=== PATIENT | female | born 1930 | race Caucasian/White ===

== ENCOUNTER 2016-02-06 13:27 | Inpatient (IN) | payer OTHER ==
--- NOTE | 2016-02-06 13:56 | EDPHY ---
H & P Stated Complaint: ALTERED LOC OVER PAST 24 HRS AT [facility], RECENT F[place]S Time Seen by Provider: 02/06/16 13:29 HPI/ROS: CHIEF COMPLAINT: Altered mental status HISTORY OF PRESENT ILLNESS: The patient is brought to the emergency department for evaluation of altered mental status. She has a fairly complicated past medical history including gait instability, dementia, paroxysmal atrial fibrillation on Coumadin with recent admission to the hospital following a mechanical fall. The patient was admitted to the hospital from January 23. She was noted to go in and out of atrial fibrillation and converted to a sinus rhythm spontaneously. She had a head CT scan which demonstrated no evidence of intracranial hemorrhage. She was not observed to have evidence of an infection and was ultimately discharged back to [facility]. By report, the patient has had some falls back at [facility]. She still has lacerations in her head that were supposed to be removed on the 31 of January. The patient is oriented complains of generalized weakness. She denies specific pain. She has no complaints of fever, vomiting or cough. She has chronic dyspnea and edema by her report. REVIEW OF SYSTEMS: A comprehensive 10 point review of systems is otherwise negative aside from elements mentioned in the history of present illness. Source: Patient Exam Limitations: No limitations - Personal History Current Tetanus/Diphtheria Vaccine: Unsure Current Tetanus Diphtheria and Acellular Pertussis (TDAP): Unsure Tetanus Vaccine Date: <10 YRS - Medical/Surgical History Hx Asthma: No Hx Chronic Respiratory Disease: No Hx Diabetes: No Hx Cardiac Disease: No Hx Renal Disease: No Hx Cirrhosis: No Hx Alcoholism: No Hx HIV/AIDS: No Hx Splenectomy or Spleen Trauma: No Other PMH: OSTEOARTHRITIS,FIBROMYLAGIA,CHRONIC KIDNEY DX, PE, DEMENTIA, - Social History Smoking Status: Never smoked - Physical Exam Exam: General Appearance: Obese female, deconditioned Eyes: Pupils equal and round no pallor or injection ENT, Mouth: Dry mucous membranes Respiratory: Mild tachypnea, rales bilaterally Cardiovascular: Tachycardic, irregular Gastrointestinal: Obese, no focal tenderness Neurological: Alert and oriented times name and place, moves all 4 extremities with 5/5 strength, somnolent but cooperative and arousable Skin: Chronic stasis dermatitis Musculoskeletal: No gross deformities or tenderness to palpation on active/ passive range of motion Extremities: 3+ bilateral pitting edema Constitutional: Initial Vital Signs Temperature (C) 36.5 C 02/06/16 13:30 Heart Rate 139 H 02/06/16 13:30 Respiratory Rate 20 02/06/16 13:30 Blood Pressure 80/58 L 02/06/16 13:30 O2 Sat (%) 93 02/06/16 13:30 O2 Delivery Mode Nasal Cannula O2 (L/minute) 4 Allergies/Adverse Reactions: ibuprofen [Ibuprofen] Allergy (Unknown, Verified 09/18/15 10:18) garlic Allergy (Verified 12/08/15 10:54) Home Medications: Medication Instructions Recorded Pregabalin [Lyrica 50mg (*)] 100 mg PO HS 11/27/12 Levothyroxine [Synthroid 75 mcg 75 mcg PO DAILY06 01/06/14 (*)] DULoxetine [Cymbalta 60 MG (*)] 60 mg PO DAILY 09/18/15 Warfarin Sodium [Coumadin 3MG (*)] 3 mg PO TUTHSA@16 09/18/15 Warfarin Sodium [Coumadin 3MG (*)] 6 mg PO SUMOWEFR@16 09/18/15 Lidocaine 5% [Lidoderm 5% Patch 1 ea TD DAILY #0 patch 09/21/15 (*)] Acetaminophen [Tylenol ES 500 mg 1,000 mg PO BID PRN 01/25/16 (*)] Medical Decision Making - Diagnostics EKG Interpretation: EKG: Complete interpretation has been separately recorded in the [facility] archive. Summary impression: Atrial fibrillation with rapid ventricular response, nonspecific ST T wave changes noted Imaging: CT head without contrast: Negative for intracranial hemorrhage or skull fracture Chest x-ray AP: Cardiomegaly and acute congestive heart failure ED Course/Re-evaluation: The patient presents to the ED with altered mental status and history of multiple falls. I reviewed her extensive past medical records including her recent hospitalization. The patient was taken for a stat CT scan of her head given her history of falls, anticoagulant use and altered mental status. This demonstrates no evidence of intracranial hemorrhage. The patient is in atrial fibrillation with rapid ventricular response. Patient had her sutures removed by the medical office technologist. She has no evidence of new trauma. The patient's chest x-ray demonstrates heart failure. Her laboratory studies are unremarkable. The patient is quite weak and deconditioned. She is unable to sit up on her own. She presents to the ED with altered mental status which is undoubtedly multifactorial. Certainly atrial fibrillation a relative hypoxemia could be contributing to her symptoms. I do feel she requires admission to the hospital for further evaluation and management. 3:15 p.m.: Consultation is made with Dr. Maxi Youssef who will admit the patient. Patient is re-examined and she is resting comfortably in the room. Heart rate is now 125, persistent atrial fibrillation. Blood pressure is 134/ 90. Differential Diagnosis: Differential diagnosis considered includes intracranial hemorrhage, skull fracture, pneumonia, congestive heart failure, arrhythmia, urinary tract infection, metabolic abnormality - Data Points Laboratory Results: Laboratory Results 02/06/16 13:50 02/06/16 13:50 02/06/16 13:50 WBC 12.07 H 10^3/uL (3.80-9.50) RBC 4.52 10^6/uL (4.18-5.33) Hgb 13.7 g/dL (12.6-16.3) Hct 41.0 % (38.0-47.0) MCV 90.7 fL (81.5-99.8) MCH 30.3 pg (27.9-34.1) MCHC 33.4 g/dL (32.4-36.7) RDW 15.0 % (11.5-15.2) Plt Count 242 10^3/uL (150-400) MPV 11.6 fL (8.7-11.7) Neut % (Auto) 85.5 H % (39.3-74.2) Lymph % (Auto) 9.0 L % (15.0-45.0) Republic % (Auto) 4.4 L % (4.5-13.0) Eos % (Auto) 0.1 L % (0.6-7.6) Baso % (Auto) 0.3 % (0.3-1.7) Nucleat RBC Rel Count 0.0 % (0.0-0.2) Absolute Neuts (auto) 10.32 H 10^3/uL (1.70-6.50) Absolute Lymphs (auto) 1.09 10^3/uL (1.00-3.00) Absolute Monos (auto) 0.53 10^3/uL (0.30-0.80) Absolute Eos (auto) 0.01 L 10^3/uL (0.03-0.40) Absolute Basos (auto) 0.04 10^3/uL (0.02-0.10) Absolute Nucleated RBC 0.00 10^3/uL (0-0.01) Immature Gran % 0.7 % (0.0-1.1) Immature Gran # 0.08 10^3/uL (0.00-0.10) PT 20.5 H SEC (12.0-15.0) INR 1.75 H (0.83-1.16) APTT 28.6 SEC (23.0-38.0) Sodium 132 L mEq/L (134-144) Potassium 4.9 mEq/L (3.5-5.2) Chloride 93 L mEq/L (97-110) Carbon Dioxide 24 mEq/l (22-31) Anion Gap 15 mEq/L (8-16) BUN 38 H mg/dL (7-23) Creatinine 1.4 H mg/dL (0.6-1.0) Estimated GFR 36 Glucose 102 H mg/dL (70-100) Calcium 9.1 mg/dL (8.5-10.4) Departure - Departure Disposition: [facility] Inpatient Acute Clinical Impression: Confusion, Rapid atrial fibrillation Condition: Fair
[2016-02-06 14:03] LABS: % IMMATURE GRANULYOCYTES 0.7 % (0.0-1.1); ABSOLUTE IMMATURE GRANULOCYTES 0.08 10^3/uL (0.00-0.10); ADD DIFF? NO; ADD MORPH? NO; ADD SCAN? NO; ATYPICAL LYMPHOCYTE FLAG 20 (0-99); FRAGMENT RBC FLAG 0 (0-99); HEMOGLOBIN 13.7 g/dL (12.6-16.3); LEFT SHIFT FLG 0 (0-99); LIPEMIA HEMOLYSIS FLAG 80 (0-99); MEAN CELL HEMOGLOBIN 30.3 pg (27.9-34.1); MEAN CELL HEMOGLOBIN CONCENTR. 33.4 g/dL (32.4-36.7); MEAN CELL VOLUME 90.7 fL (81.5-99.8); MEAN PLATELET VOLUME 11.6 fL (8.7-11.7); PLATELET CLUMPS FLAG 0 (0-99); PLATELET COUNT 242 10^3/uL (150-400); RED BLOOD CELL COUNT 4.52 10^6/uL (4.18-5.33)
--- NOTE | 2016-02-06 14:24 | CPEKG ---
Heart Rate: 152 RR Interval: 395 QRSD Interval: 82 QT Interval: 304 QTC Interval: 484 QRS [place]: -1 T Wave [place]: 96 EKG Severity - ABNORMAL ECG - EKG Impression: ATRIAL FIBRILLATION WITH RAPID V-RATE EKG Impression: REPOLARIZATION ABNORMALITY, PROB RATE RELATED Electronically Signed By: Larry Rousseau 06-Feb-2016 16:17:50
--- NOTE | 2016-02-06 14:29 | DX ---
Portable AP chest. February 06, 2016 at 13:59 History: Cough. Dyspnea. Comparison Study: January 24, 2016. Findings: Increasing pulmonary vascular prominence is identified when compared to prior study suggest ing progressive congestive heart failure, associated with small right pleural effusion and increase i n cardiac silhouette size. Impression: Congestive heart failure, new.
[2016-02-06 14:30] LABS: APTT 28.6 SEC (23.0-38.0); INR 1.75 (0.83-1.16); PROTIME(PATIENT) 20.5 SEC (12.0-15.0)
[2016-02-06] MEDS ORDERED: NS 500 ML IV SCH (14:30)
[2016-02-06 14:32] LABS: ANION GAP 15 mEq/L (8-16); CALCIUM 9.1 mg/dL (8.5-10.4); CARBON DIOXIDE 24 mEq/l (22-31); CHLORIDE 93 mEq/L (97-110); CREATININE 1.4 mg/dL (0.6-1.0); GLOMERULAR FILTRATION RATE 36; GLUCOSE 102 mg/dL (70-100); POTASSIUM 4.9 mEq/L (3.5-5.2); SODIUM 132 mEq/L (134-144)
--- NOTE | 2016-02-06 14:38 | CT ---
CT Head Without Contrast History: Trauma. Head injury. Altered mental status. Comparison: January 24, 2016. Technique: Helical CT images were acquired from foramen magnum through vertex, without intravenous c ontrast. Soft tissue and bone windows were reviewed on the computer workstation. Dose reduction tech niques were utilized. Findings: Soft tissue swelling is seen in the left frontal scalp. No evidence for skull fracture. No evidence for intracranial hemorrhage, acute infarct, or mass. There is periventricular and deep hemis pheric white matter change bilaterally which is stable in appearance. Calcifications are seen in the white matter bilaterally which are stable in appearance. There is generalized prominence of the ventr icles, sulci, and cisterns. No evidence for an extraaxial fluid collection. Impression: 1. Soft tissue swelling in the left frontal scalp without evidence for skull fracture. No evidence fo r acute intracranial hemorrhage. 2. Extensive periventricular and deep hemispheric white matter change that can be seen with small ves earnest ischemic disease. No evidence for acute infarct. 3. Punctate white matter calcifications which could be secondary to infectious or inflammatory etiolo gy stable in appearance. 4. Generalized cerebral atrophy. Results discussed with Dr. Shefali Miranda.
[2016-02-06] MEDS ORDERED: ONDANSETRON 4 MG/2 ML VIAL IVP PRN (16:19)
[2016-02-06] MEDS ORDERED: HYDROCODONE/APAP 5/325 TAB PO PRN (16:19)
[2016-02-06] MEDS ORDERED: ONDANSETRON DISINTEGRATING 4 MG TAB PO PRN (16:19)
[2016-02-06] MEDS ORDERED: ACETAMINOPHEN 500 MG TAB PO PRN (16:23)
[2016-02-06] MEDS ORDERED: METOPROLOL TARTRATE 5 MG/5 ML INJ IVP ONE (16:24)
--- NOTE | 2016-02-06 16:31 | PDGENHP ---
History and Physical - Chief Complaint fall - History of Present Illness 85 yo F presenting from NH w/recent fall in setting of increased falls recently. Has had a recent admission for new onset a fib, and presents again in a fib with rates in the 150s initially. She has dementia at baseline and her history is limited by this, however at the time of my evaluation she does not have any acute complaints. She notes that her head hurts a bit where she hit it , but denies chest pain, sob, palpitations. She does not remember why or how she fell but denies fainting or LOC. History Information - Allergies/Home Medication List Allergies/Adverse Reactions: ibuprofen [Ibuprofen] Allergy (Unknown, Verified 09/18/15 10:18) garlic Allergy (Verified 12/08/15 10:54) Home Medications: Levothyroxine [Synthroid 75 mcg (*)] 75 mcg PO DAILY06 01/06/14 [Last Taken ] DULoxetine [Cymbalta 60 MG (*)] 60 mg PO DAILY 09/18/15 [Last Taken 02/06/16] Acetaminophen [Tylenol ES 500 mg (*)] 1,000 mg PO BID PRN 01/25/16 [Last Taken 02/06/16] Ipratropium/Albuterol [Duoneb (*)] 3 ml IH Q4 02/06/16 [Last Taken 02/06/16 12: 00] Metoprolol Tartrate [Lopressor 25 mg (*)] 25 mg PO BID 02/06/16 [Last Taken 09:00] Pregabalin [Lyrica 50mg (*)] 100 mg PO HS 02/06/16 [Last Taken 02/05/16] Warfarin Sodium [Coumadin 4MG (*)] 4 mg PO DAILY16 02/06/16 [Last Taken 02/05/16 ] guaiFENesin [Mucinex 600 MG (*)] 600 mg PO BID 02/06/16 [Last Taken 02/06/16 09: 00] I have personally reviewed and updated: family history, medical history, social history - Past Medical History atrial fibrillation, CHF (diastolic with preserved ef), dementia, pulmonary embolism Additional medical history: Hypothyroidism. Osteoporosis. Dementia. Fibromyalgia. History of pulmonary embolism, on Coumadin (12/2013) - Surgical History Additional surgical history: Hip replacement. Right total knee replacement. Appendectomy. 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 Patient was never has no children, but has close network of friends and relatives in [place]. She lives alone with her dog in [facility]. Review of Systems ROS: 10pt was reviewed & negative except for what was stated in HPI & below Physical Exam Temp Pulse Resp BP Pulse Ox 36.5 C 146 H 20 111/89 H 95 02/06/16 13:30 02/06/16 16:00 02/06/16 16:00 02/06/16 16:00 02/06/16 16:00 O2 (L/minute) 4 Constitutional: no apparent distress, chronically ill appearing Eyes: PERRL Ears, Nose, Mouth, Throat: moist mucous membranes, hearing normal Cardiovascular: irregularly irregular, tachycardia, No edema Respiratory: no respiratory distress, no rales or rhonchi Gastrointestinal: normoactive bowel sounds, soft, non-tender abdomen Skin: warm, normal color, abrasion (face) Musculoskeletal: No asymmetric calves, No muscular tenderness Neurologic: AAOx3 Psychiatric: interacting appropriately, not anxious, not encephalopathic Lab Data & Imaging Review 02/06/16 13:50 02/06/16 13:50 WBC 12.07 10^3/uL (3.80-9.50) H 02/06/16 13:50 RBC 4.52 10^6/uL (4.18-5.33) 02/06/16 13:50 Hgb 13.7 g/dL (12.6-16.3) 02/06/16 13:50 Hct 41.0 % (38.0-47.0) 02/06/16 13:50 MCV 90.7 fL (81.5-99.8) 02/06/16 13:50 MCH 30.3 pg (27.9-34.1) 02/06/16 13:50 MCHC 33.4 g/dL (32.4-36.7) 02/06/16 13:50 RDW 15.0 % (11.5-15.2) 02/06/16 13:50 Plt Count 242 10^3/uL (150-400) 02/06/16 13:50 MPV 11.6 fL (8.7-11.7) 02/06/16 13:50 Neut % (Auto) 85.5 % (39.3-74.2) H 02/06/16 13:50 Lymph % (Auto) 9.0 % (15.0-45.0) L 02/06/16 13:50 Piatt % (Auto) 4.4 % (4.5-13.0) L 02/06/16 13:50 Eos % (Auto) 0.1 % (0.6-7.6) L 02/06/16 13:50 Baso % (Auto) 0.3 % (0.3-1.7) 02/06/16 13:50 Nucleat RBC Rel Count 0.0 % (0.0-0.2) 02/06/16 13:50 Absolute Neuts (auto) 10.32 10^3/uL (1.70-6.50) H 02/06/16 13:50 Absolute Lymphs (auto) 1.09 10^3/uL (1.00-3.00) 02/06/16 13:50 Absolute Monos (auto) 0.53 10^3/uL (0.30-0.80) 02/06/16 13:50 Absolute Eos (auto) 0.01 10^3/uL (0.03-0.40) L 02/06/16 13:50 Absolute Basos (auto) 0.04 10^3/uL (0.02-0.10) 02/06/16 13:50 Absolute Nucleated RBC 0.00 10^3/uL (0-0.01) 02/06/16 13:50 Immature Gran % 0.7 % (0.0-1.1) 02/06/16 13:50 Immature Gran # 0.08 10^3/uL (0.00-0.10) 02/06/16 13:50 PT 20.5 SEC (12.0-15.0) H 02/06/16 13:50 INR 1.75 (0.83-1.16) H 02/06/16 13:50 APTT 28.6 SEC (23.0-38.0) 02/06/16 13:50 Sodium 132 mEq/L (134-144) L 02/06/16 13:50 Potassium 4.9 mEq/L (3.5-5.2) 02/06/16 13:50 Chloride 93 mEq/L (97-110) L 02/06/16 13:50 Carbon Dioxide 24 mEq/l (22-31) 02/06/16 13:50 Anion Gap 15 mEq/L (8-16) 02/06/16 13:50 BUN 38 mg/dL (7-23) H 02/06/16 13:50 Creatinine 1.4 mg/dL (0.6-1.0) H 02/06/16 13:50 Estimated GFR 36 02/06/16 13:50 Glucose 102 mg/dL (70-100) H 02/06/16 13:50 Calcium 9.1 mg/dL (8.5-10.4) 02/06/16 13:50 Visualized and Interpreted Chest x-ray results: Yes Chest X-Ray results: other (new chf) Visualized and Interpreted EKG results: Yes EKG additional interpertation: atrial fibrillation with rvr Assessment & Plan Assessment: 85 yo F with recent hospitalization for new onset a fib and falls presents with increased confusion, falls and a fib w/rvr # acute on chronic encephalopathy: with baseline dementia limiting some of the history gathering, but appears to be more confused than prior per report from her NH. Likely related to recurrent a fib. No e/o infection, head ct w/o acute findings. Will monitor for now. # a fib w/rvr: with recent admit for same. Has been on metoprolol as an OP and will continue with an extra IV dose as well. Monitoring on tele. Had recent echo that was relatively unremarkable. Will trend trops. Will start on lovenox tx dose and cardiology to consult in am. # h/o PE: on chronic AC, INR slightly subtherapeutic and will bridge with lovenox for now # multiple falls: unclear if there was a more recent fall or not but per NH report patient has been falling more frequently, large abrasion on head but head ct negative. Concerning in a patient on chronic AC and this would be good to discuss with patient family prior to dc # janay on ckd: with baseline creatinine closer to 1.2, currently 1.4. Likely pre renal in setting of confusion and likely poor po intake. # acute decompensated diastolic heart failure: evidence of pulmonary edema on cxr, has preserved EF by recent echo. Mildly volume overloaded but doing well on low flow o2. Will give lasix in am. Likely due to a fib. # dementia: seems to be slightly worse than baseline, as above # leukocytosis: suspect stress response, no e/o infection # dispo: IP status, will need > 48 hours stay for eval/mgmt of above Pt new to my care. old records reviewed/summarized as above. Care plan reviewed with ER doctor as above.
[2016-02-06] MEDS ORDERED: METOPROLOL TARTRATE 5 MG/5 ML INJ ONE (17:11)
[2016-02-06 19:18] LABS: COLOR AMBER; LEUKOCYTE ESTERASE,URINE TRACE (NEGATIVE); NITRITE,URINE NEGATIVE (NEGATIVE)
[2016-02-06 19:23] LABS: BACTERIA TRACE /hpf (NONE SEEN); MUCUS TRACE /lpf (NONE-1+); WBC,URINE 15-25 /hpf (0-3)
[2016-02-06] MEDS: IPRATROPIUM/ALBUTEROL 3 ML DEYVIAL IH SCH ×2 (20:34→20:35)
[2016-02-06] MEDS: guaiFENesin 600 MG TAB.ER PO SCH (20:56)
[2016-02-06] MEDS: METOPROLOL TARTRATE 25 MG TAB PO SCH (20:56)
[2016-02-06] MEDS: PREGABALIN 50 MG CAP PO SCH (20:56)
[2016-02-06] MEDS: ENOXAPARIN 80 MG/0.8 ML SYR SC SCH (20:56)
[2016-02-06 22:40] LABS: TROPONIN I 0.048 ng/mL (0-0.034)
[2016-02-06] MEDS: DILTIAZEM 125 MG in D5W 125 ML IV SCH (23:16)
[2016-02-07] MEDS: IPRATROPIUM/ALBUTEROL 3 ML DEYVIAL IH SCH ×4 (05:07→22:25)
[2016-02-07 05:28] LABS: % IMMATURE GRANULYOCYTES 0.8 % (0.0-1.1); ABSOLUTE IMMATURE GRANULOCYTES 0.09 10^3/uL (0.00-0.10); ADD DIFF? NO; ADD MORPH? NO; ADD SCAN? NO; ATYPICAL LYMPHOCYTE FLAG 0 (0-99); FRAGMENT RBC FLAG 0 (0-99); HEMATOCRIT 40.1 % (38.0-47.0); HEMOGLOBIN 12.9 g/dL (12.6-16.3); LEFT SHIFT FLG 10 (0-99); LIPEMIA HEMOLYSIS FLAG 80 (0-99); MEAN CELL HEMOGLOBIN 30.6 pg (27.9-34.1); MEAN CELL HEMOGLOBIN CONCENTR. 32.2 g/dL (32.4-36.7); MEAN CELL VOLUME 95.2 fL (81.5-99.8); MEAN PLATELET VOLUME 12.2 fL (8.7-11.7); PLATELET CLUMPS FLAG 30 (0-99); PLATELET COUNT 194 10^3/uL (150-400); RED BLOOD CELL COUNT 4.21 10^6/uL (4.18-5.33); RED CELL DISTRIBUTION WIDTH 15.2 % (11.5-15.2)
[2016-02-07 06:49] LABS: ANION GAP 18 mEq/L (8-16); CARBON DIOXIDE 16 mEq/l (22-31); CHLORIDE 102 mEq/L (97-110); CREATININE 1.5 mg/dL (0.6-1.0); GLOMERULAR FILTRATION RATE 33; GLUCOSE 87 mg/dL (70-100); POTASSIUM 5.1 mEq/L (3.5-5.2); SODIUM 136 mEq/L (134-144)
[2016-02-07 06:59] LABS: TROPONIN I 0.047 ng/mL (0-0.034)
[2016-02-07] MEDS: LEVOTHYROXINE 75 MCG TAB PO SCH (07:15)
[2016-02-07] MEDS: METOPROLOL TARTRATE 25 MG TAB PO SCH ×2 (08:49→20:39)
[2016-02-07] MEDS: DULoxetine 60 MG CAP PO SCH (08:49)
[2016-02-07] MEDS: ENOXAPARIN 80 MG/0.8 ML SYR SC SCH (08:50)
[2016-02-07] MEDS: guaiFENesin 600 MG TAB.ER PO SCH ×2 (08:50→20:40)
[2016-02-07] MEDS: LIDOCAINE 5% 1 EA PATCH TD SCH (08:50)
--- NOTE | 2016-02-07 12:19 | GCON ---
[f rep st] CONSULTATION CARDIAC CONSULTATION DATE OF CONSULTATION: 02/07/2016 CHIEF COMPLAINT: Atrial fibrillation. HPI: This is an 85-year-old female who was admitted yesterday for falls in her long term. She mckeon d hit her head and has baseline dementia which apparently was possibly worsened. There was no PAPER MACHINE TENDER bl eed noted. She was admitted 2 weeks ago for dementia, weakness and a UTI, and at that time noted par oxysmal atrial fibrillation. Apparently, a beta renee was begun at that time. Echocardiogram did not show any significant issues other than normal aging on her 85-year-old heart. Yesterday, she was in atrial fibrillation with rapid ventricular response. She was given IV diltiazem. Today, her hea rt rate is much improved. She is on beta renee. In seeing her, she is sitting comfortably. I saw her with her daughter at this point. We spoke about anticoagulation versus no anticoagulation. She was on Coumadin for DVT pulmonary emboli approximately 2 years ago. After reviewing the risks, she is high risk of both bleeding and embolic phenomenon. However, with her ongoing dementia and recent falls, the family is comfortable with stopping Coumadin at this time. Her power of ip attorney is a cou sin who need to be notified and spoken to as well with the risks. At this point, she is comfortable and stable. She remains on an IV diltiazem drip and appears to be hemodynamically stable. Other carlos n the recent addition of metoprolol, there is nothing new. PAST MEDICAL HISTORY: Encephalopathy with dementia living in a long term. She is DNR. History o f pulmonary emboli approximately 2 years as best as I could tell on chronic oral anticoagulation mariya combs was discussed as above. History of chronic urinary tract infections. EXAM: GENERAL: Elderly female with ecchymoses on her left eye and forehead from her fall. She is a lert to name. She does not know the date. HEENT: Her mouth and oropharynx were moist. BACK: Show s some kyphosis. LUNGS: Essentially clear. CARDIOVASCULAR: Regular rate and rhythm with a soft sy stolic murmur. ABDOMEN: Soft, normoactive bowel sounds. There was no edema. She had no carotid bru its noted. ASSESSMENT: 1. Paroxysmal atrial fibrillation, probably multifactorial. At this time, she appears to be hemodyn amically stable on IV diltiazem. Apparently 2 weeks ago when she was admitted, she had spontaneous c onversion and has been on beta renee. We will try to transition from IV diltiazem to p.o. digoxin. We will continue to follow her blood pressures. The big question is whether or not to maintain ora l anticoagulation. The procedure risks, benefits, complications of both being on Coumadin versus the bleeding risks were outlined. She is high risk for both. She has chronic ongoing impulse issues an d had recent falls at this point. Her power of ip attorney will be contacted and discussed with the gracy woodson for final determination. The daughter, whom I spoke to today was strongly considering withholdin g further anticoagulation due to the recent falls and dementia issues. 2. History of UTIs with dehydration, probably a factor with her recurrent falls. 3. History of dementia. The patient lives in a long term. She is DNR. [id number] is a etienne coronado. 4. Diastolic heart failure, most likely secondary to atrial fibrillation with rapid ventricular resp onse. She appears to be hemodynamically stable at this time. We will adapt her rate control strateg y for her. PLAN: Further care depending on their decision on anticoagulation. Will add digoxin and discontinue diltiazem at this time and adjust medications as needed. /[id number]/MODL
[2016-02-07] MEDS: DIGOXIN 250 MCG TAB PO SCH ×3 (13:45→23:23)
--- NOTE | 2016-02-07 14:50 | PDPCPN ---
Palliative Care Progress Note Assessment/Plan: Referring provider: Dr Panchal Reason for consult: Complex medical decision making Symptom control HPI: Vkii Holman is a 85 yo female with PMH a fib, CHF, PE/DVT, and dementia admitted with increased falls and confusion. Recent discharge from [facility] 01/28 for falls, UTI, and a fib. Discharged to [facility] for rehab. On admission with a fib but converted to NSR with addition of cardizem. MOST form with DNR- comfort care only. Palliative care consulted for complex medical decision making. Spoke with caregiver/friend Kathe at the bedside with Viki this AM. Kathe shared that Viki has been only living at [facility] for the past 2 months. Previously she was living at home with some caregivers but safety was an issue with multiple falls and so decision was made to move to [facility]. Per Kathe she mentally was clear and healthy except for falling prior to the move to [facility]. Kathe stated she declined when she moved to [facility] with increased memory loss and continued falls. At [facility] she was also having a lot of falls. Viki shared that what matters most to her is being at her "home" [facility] with her dog Jose. She is not interested in prolonging her life and prefers to allow a natural course of life. Kathe feels that the transitions between home/[facility]/ [place] [facility] have worsened her mentally and medically and agrees that her "home" is the best place for her. We discussed options at discharge including hospice care which is in line with her goals of comfort only at home and not returning back to the hospital. They have worked with [facility] in the past and would like to have them eval for hospice care at home. Assessment: Physical: - Pain: -tylenol PRN - on cymbalta and lyrica for chronic pain - lidocaine patch - Cough: - oxygen as needed - slow, deep breathing as needed - nebs scheduled - mucinex PRN - Falls - nursing care per routine - fall precautions Emotional/psychological: Doing ok, has a lot of support from friends. Advanced Care Planning: Is patient decisional?: Yes with help Code Status: DNR POA: Cousin Juan Pablo is MDPOA. Plan: Patient would like to live as comfortably as possible at home. She is not interested in medical interventions to prolong life or returning back to the hospital. Caregiver states this has been in line with her wishes and her [facility] would support this decision. Caregiver Kathe is in communication with [facility]. They have used [facility] in the past with other people and would like to have hospice eval and treat for hospice care at home. They are hoping to have her back at [facility] either assisted living or memory care. Subjective: I'm doing just fine Objective: Social History: Single, never , no children. 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 Has lived here since 1991. Cousin and 2 close friends/ caregivers involved. Medication list reviewed ROS: General: fatigue, weakness ENT: negative Resp: dyspnea, cough GI: poor appetite : negative MS: negative Skin: bruise on forehead Neuro: negative Psych: confusion Functional assessment: PPS: 40% Functional status: dependent on ADLs, IADLs Vital Signs Temp Pulse Resp BP Pulse Ox 35.6 C L 80 27 H 93/55 L 96 02/07/16 11:48 02/07/16 13:45 02/07/16 12:37 02/07/16 11:48 02/07/16 12:37 Laboratory Results 02/07/16 03:53 02/07/16 03:53 02/06/16 02/07/16 02/08/16 05:59 05:59 05:59 Intake Total 870 Output Total 100 Balance 770 PT 20.5 SEC (12.0-15.0) H 02/06/16 13:50 INR 1.75 (0.83-1.16) H 02/06/16 13:50 Physical Exam - Physical Exam General Appearance: alert, no apparent distress EENT: other (bruising on face) Respiratory: decreased breath sounds, No respiratory distress, No accessory muscle use Skin: normal color, warm/dry Extremities: No pedal edema Neuro/Psych: alert, disoriented to time, other (some confusion and short term memory loss) ICD10 Worksheet Patient Problems: Problems Problem Status Diagnosed Confusion Acute Palliative care encounter Acute Rapid atrial fibrillation Acute Fall Acute Head injury Acute Hypertension Acute Laceration of forehead Acute Pulmonary embolism Acute Syncope and collapse Acute Wedge compression fracture of T11 vertebra Acute - ICD10 Problem Qualifiers (1) Palliative care encounter
--- NOTE | 2016-02-07 15:01 | DX ---
Portable chest x-ray 1407 hours. History: Followup CHF. Findings: Comparison to toe 2015. Heart size remains mildly enlarged. Pulmonary vasculature remains prominent centrally. There is persi stent prominence of pulmonary vasculature along with patchy bilateral infiltrates and some dependent edema. There is haziness at the lung bases compatible with mild effusions. Osseous structures are unc hanged. Impression: 1. Stable patchy bilateral infiltrates and dependent edema along with effusions compatible with stabl e CHF pattern.
[2016-02-07] MEDS: DILTIAZEM 125 MG in D5W 125 ML IV SCH (15:10)
[2016-02-07] MEDS: ACETAMINOPHEN 325 MG TAB PO PRN (15:12)
--- NOTE | 2016-02-07 15:18 | WOCRNPDOC ---
WOCRN Advanced Assessment Note - Skin Integrity Problem, Advanced Assess Left Buttock Abrasion Dressing Type: Open to Air Wound Bed Constitution: Smooth Tissue Site Measurement - Head-to-Toe Length X Width X Depth (cm): 1x1x0.1 Skin Integrity Problem Comment: Small friction abrasion. Not pressure related. All bony areas non erythematic. Dimethicone lotion to area BID. Please reconsult prn.
[2016-02-07] MEDS ORDERED: WARFARIN SODIUM 4 MG TAB PO SCH (16:00)
--- NOTE | 2016-02-07 16:53 | HOSPPROG ---
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 Will probably go to sniff with hospice * dementia Subjective: no new complaints Objective: Vital Signs Temp Pulse Resp BP Pulse Ox 36.4 C 82 18 102/66 94 02/07/16 15:40 02/07/16 15:40 02/07/16 15:40 02/07/16 15:40 02/07/16 15:40 Laboratory Results 02/07/16 03:53 02/07/16 03:53 02/06/16 02/07/16 02/08/16 05:59 05:59 05:59 Intake Total 870 Output Total 100 Balance 770 PT 20.5 SEC (12.0-15.0) H 02/06/16 13:50 INR 1.75 (0.83-1.16) H 02/06/16 13:50 discussed with Cardiology tele personally reviewed interpreted rapid AFib - Physical Exam Constitutional: no apparent distress, appears nourished, not in pain Eyes: anicteric sclera, EOMI Ears, Nose, Mouth, Throat: moist mucous membranes, hearing normal Cardiovascular: irregularly irregular, tachycardia Respiratory: no respiratory distress, no rales or rhonchi, clear to auscultation Gastrointestinal: normoactive bowel sounds, soft, non-tender abdomen, no palpable masses Skin: warm Neurologic: No AAOx3 Psychiatric: interacting appropriately, not anxious, not encephalopathic, thought process linear ICD10 Worksheet Patient Problems: Problems Problem Status Diagnosed Confusion Acute Palliative care encounter Acute Rapid atrial fibrillation Acute Fall Acute Head injury Acute Hypertension Acute Laceration of forehead Acute Pulmonary embolism Acute Syncope and collapse Acute Wedge compression fracture of T11 vertebra Acute
[2016-02-07] MEDS: PREGABALIN 50 MG CAP PO SCH (20:40)
[2016-02-08] MEDS: IPRATROPIUM/ALBUTEROL 3 ML DEYVIAL IH SCH ×4 (04:38→23:53)
[2016-02-08 04:45] LABS: % IMMATURE GRANULYOCYTES 0.3 % (0.0-1.1); ABSOLUTE IMMATURE GRANULOCYTES 0.02 10^3/uL (0.00-0.10); ADD DIFF? NO; ADD MORPH? NO; ADD SCAN? NO; ATYPICAL LYMPHOCYTE FLAG 30 (0-99); FRAGMENT RBC FLAG 0 (0-99); HEMATOCRIT 38.4 % (38.0-47.0); LEFT SHIFT FLG 0 (0-99); LIPEMIA HEMOLYSIS FLAG 90 (0-99); MEAN CELL HEMOGLOBIN 30.7 pg (27.9-34.1); MEAN CELL HEMOGLOBIN CONCENTR. 33.9 g/dL (32.4-36.7); MEAN CELL VOLUME 90.8 fL (81.5-99.8); MEAN PLATELET VOLUME 11.9 fL (8.7-11.7); PLATELET CLUMPS FLAG 0 (0-99); PLATELET COUNT 215 10^3/uL (150-400); RED BLOOD CELL COUNT 4.23 10^6/uL (4.18-5.33); RED CELL DISTRIBUTION WIDTH 14.9 % (11.5-15.2)
[2016-02-08 05:02] LABS: ANION GAP 10 mEq/L (8-16); CALCIUM 8.8 mg/dL (8.5-10.4); CARBON DIOXIDE 25 mEq/l (22-31); CHLORIDE 95 mEq/L (97-110); CREATININE 1.3 mg/dL (0.6-1.0); GLOMERULAR FILTRATION RATE 39; GLUCOSE 91 mg/dL (70-100); POTASSIUM 4.5 mEq/L (3.5-5.2); SODIUM 130 mEq/L (134-144)
[2016-02-08] MEDS: LEVOTHYROXINE 75 MCG TAB PO SCH (05:59)
[2016-02-08] MEDS: DIGOXIN 250 MCG TAB PO SCH (05:59)
[2016-02-08] MEDS: METOPROLOL TARTRATE 25 MG TAB PO SCH ×2 (08:11→21:00)
[2016-02-08] MEDS: guaiFENesin 600 MG TAB.ER PO SCH ×2 (08:12→20:59)
[2016-02-08] MEDS: DULoxetine 60 MG CAP PO SCH (08:13)
[2016-02-08] MEDS: LIDOCAINE 5% 1 EA PATCH TD SCH (08:24)
--- NOTE | 2016-02-08 09:37 | SOAPPROG ---
[facility] Progress Note Assessment/Plan: Assessment: 1. chronic afib...would only rx with current BB dose if pt going to hospice...if rate control needs to be addressed would continue digoxin daily but if at hospice not necessary...agree with no coumadin Plan:1. will sign off case 02/08/16 09:34 Subjective: pt is shower..spoke to yue (rn).decision on hospice today...comadin stopped...b/p 90 to 100's..hr 80 to 120's Objective: Vital Signs Temp Pulse Resp BP Pulse Ox 36.9 C 117 H 17 122/77 H 98 02/08/16 08:00 02/08/16 08:00 02/08/16 08:00 02/08/16 08:00 02/08/16 08:00 Microbiology 02/06/16 19:06 Urine Culture - Final Urine,Catheterized Escherichia Coli Laboratory Results 02/08/16 03:32 02/08/16 03:32 02/07/16 02/08/16 02/09/16 05:59 05:59 05:59 Intake Total 870 865 Output Total 100 250 Balance 770 615 PT 20.5 SEC (12.0-15.0) H 02/06/16 13:50 INR 1.75 (0.83-1.16) H 02/06/16 13:50 ICD10 Worksheet Patient Problems: Problems Problem Status Diagnosed Confusion Acute Palliative care encounter Acute Rapid atrial fibrillation Acute Fall Acute Head injury Acute Hypertension Acute Laceration of forehead Acute Pulmonary embolism Acute Syncope and collapse Acute Wedge compression fracture of T11 vertebra Acute
[2016-02-08] MEDS: ACETAMINOPHEN 325 MG TAB PO PRN (12:04)
--- NOTE | 2016-02-08 14:04 | HOSPPROG ---
Hospitalist Progress Note Assessment/Plan: 85-year-old female admitted with shortness of breath and history of frequent falls. Patient is new to me today. She has a history of chronic AFib, chronic congestive heart failure, DVT, pulmonary embolus, and need for anticoagulation. She is a recent resident of [place] and per the palliative care consult has had a significant decline in the last 2 months. The family desires hospice care either at home or [place]. -chronic atrial fibrillation with need for rate control. Per Cardiology we will use only metoprolol for her rate control in light of her low blood pressure. Digoxin could be used but there is concern of toxicity regarding possible renal failure. Thus in light of the hospice care decision digoxin will not be used. -anticoagulation for chronic AFib and history of DVT and PE. -chronic congestive heart failure with acute exacerbation. Clinically the patient has significant CHF with rales in both bases and increased dullness. Diuresis would be useful yet the decision is for hospice care then this will be withheld. -disposition to [place] on 02/08. It is expected she will be in hospice care at [place]. Subjective: No complaints. She is hard of hearing and demented and often answers questions inappropriately and does not understand the questions. She does not appear in distress Objective: Vital Signs Temp Pulse Resp BP Pulse Ox 36.6 C 105 H 15 114/80 99 02/08/16 12:00 02/08/16 12:00 02/08/16 12:00 02/08/16 12:00 02/08/16 12:00 Microbiology 02/06/16 19:06 Urine Culture - Final Urine,Catheterized Escherichia Coli Laboratory Results 02/08/16 03:32 02/08/16 03:32 02/07/16 02/08/16 02/09/16 05:59 05:59 05:59 Intake Total 870 865 Output Total 100 250 400 Balance 770 615 -400 PT 20.5 SEC (12.0-15.0) H 02/06/16 13:50 INR 1.75 (0.83-1.16) H 02/06/16 13:50 - Time Spent With Patient Time Spent with Patient: greater than 35 minutes Time Spent with Patient: Greater than 35 minutes spent on this patients care, greater than 50% of time spent counseling, educating, and coordinating care regarding the above mentioned plan. - Physical Exam Constitutional: no apparent distress, chronically ill appearing Eyes: PERRL, anicteric sclera Ears, Nose, Mouth, Throat: moist mucous membranes, hard of hearing Cardiovascular: irregularly irregular Respiratory: reduced air movement, inspiratory crackles, bronchial breath sounds , dullness to percussion Gastrointestinal: normoactive bowel sounds, soft, non-tender abdomen Musculoskeletal: generalized weakness Neurologic: other (Oriented times 0. She is interactive but not oriented.) ICD10 Worksheet Patient Problems: Problems Problem Status Diagnosed Confusion Acute Palliative care encounter Acute Rapid atrial fibrillation Acute Fall Acute Head injury Acute Hypertension Acute Laceration of forehead Acute Pulmonary embolism Acute Syncope and collapse Acute Wedge compression fracture of T11 vertebra Acute
[2016-02-08] MEDS: PREGABALIN 50 MG CAP PO SCH (20:59)
[2016-02-09 04:40] LABS: % IMMATURE GRANULYOCYTES 0.6 % (0.0-1.1); ABSOLUTE IMMATURE GRANULOCYTES 0.03 10^3/uL (0.00-0.10); ADD DIFF? NO; ADD MORPH? NO; ADD SCAN? NO; ATYPICAL LYMPHOCYTE FLAG 80 (0-99); FRAGMENT RBC FLAG 0 (0-99); HEMATOCRIT 38.6 % (38.0-47.0); HEMOGLOBIN 12.5 g/dL (12.6-16.3); LEFT SHIFT FLG 0 (0-99); LIPEMIA HEMOLYSIS FLAG 80 (0-99); MEAN CELL HEMOGLOBIN 30.3 pg (27.9-34.1); MEAN CELL HEMOGLOBIN CONCENTR. 32.4 g/dL (32.4-36.7); MEAN CELL VOLUME 93.7 fL (81.5-99.8); MEAN PLATELET VOLUME 11.7 fL (8.7-11.7); PLATELET CLUMPS FLAG 0 (0-99); PLATELET COUNT 205 10^3/uL (150-400); RED BLOOD CELL COUNT 4.12 10^6/uL (4.18-5.33)
[2016-02-09 04:53] LABS: ANION GAP 9 mEq/L (8-16); CALCIUM 8.7 mg/dL (8.5-10.4); CARBON DIOXIDE 28 mEq/l (22-31); CHLORIDE 97 mEq/L (97-110); GLOMERULAR FILTRATION RATE 53; GLUCOSE 81 mg/dL (70-100); POTASSIUM 4.9 mEq/L (3.5-5.2); SODIUM 134 mEq/L (134-144)
[2016-02-09] MEDS: IPRATROPIUM/ALBUTEROL 3 ML DEYVIAL IH SCH ×3 (05:12→19:08)
[2016-02-09] MEDS: LEVOTHYROXINE 75 MCG TAB PO SCH (06:23)
[2016-02-09] MEDS: guaiFENesin 600 MG TAB.ER PO SCH ×2 (08:11→20:03)
[2016-02-09] MEDS: DULoxetine 60 MG CAP PO SCH (08:12)
[2016-02-09] MEDS: ACETAMINOPHEN 325 MG TAB PO PRN (08:23)
[2016-02-09] MEDS: LIDOCAINE 5% 1 EA PATCH TD SCH (08:23)
[2016-02-09] MEDS: METOPROLOL TARTRATE 25 MG TAB PO SCH ×2 (09:17→20:03)
--- NOTE | 2016-02-09 15:58 | HOSPPROG ---
Hospitalist Progress Note Assessment/Plan: 85-year-old female admitted with shortness of breath and history of frequent falls. She has a history of chronic AFib, chronic congestive heart failure, DVT, pulmonary embolus, and need for anticoagulation. She is a recent resident of [place] and per the palliative care consult has had a significant decline in the last 2 months. The family desires hospice care either at home or [place]. -chronic atrial fibrillation with need for rate control. Per Cardiology we will use only metoprolol for her rate control in light of her low blood pressure. Digoxin could be used but there is concern of toxicity regarding possible renal failure. Thus in light of the hospice care decision digoxin will not be used. -anticoagulation for chronic AFib and history of DVT and PE. -chronic congestive heart failure with acute exacerbation. Clinically the patient has significant CHF with rales in both bases and increased dullness. Diuresis would be useful yet the decision is for hospice care then this will be withheld. -disposition today is unclear. The family feels that she needs to be watched due to the fall risk and despite the decision to use hospice care [place] once the patient watched on a 24/7 basis. The family cannot afford the 24/7 care. [facility] is currently refusing to accept her. Thus at this time we have no clear disposition. Subjective: No complaints of chest pain shortness of breath nausea vomiting fever or chills. She is alert Objective: Vital Signs Temp Pulse Resp BP Pulse Ox 36.6 C 110 H 14 100/60 88 L 02/09/16 08:00 02/09/16 11:00 02/09/16 08:00 02/09/16 10:20 02/09/16 11:00 Laboratory Results 02/09/16 03:38 02/09/16 03:38 02/08/16 02/09/16 02/10/16 05:59 05:59 05:59 Intake Total 865 200 Output Total 250 400 Balance 615 -200 PT 20.5 SEC (12.0-15.0) H 02/06/16 13:50 INR 1.75 (0.83-1.16) H 02/06/16 13:50 - Time Spent With Patient Time Spent with Patient: greater than 35 minutes Time Spent with Patient: Greater than 35 minutes spent on this patients care, greater than 50% of time spent counseling, educating, and coordinating care regarding the above mentioned plan. - Physical Exam Constitutional: chronically ill appearing Eyes: PERRL Ears, Nose, Mouth, Throat: moist mucous membranes, hard of hearing Cardiovascular: irregularly irregular Respiratory: no respiratory distress, no rales or rhonchi Gastrointestinal: normoactive bowel sounds, soft, non-tender abdomen, no palpable masses ICD10 Worksheet Patient Problems: Problems Problem Status Diagnosed Confusion Acute Palliative care encounter Acute Rapid atrial fibrillation Acute Fall Acute Head injury Acute Hypertension Acute Laceration of forehead Acute Pulmonary embolism Acute Syncope and collapse Acute Wedge compression fracture of T11 vertebra Acute
[2016-02-09] MEDS: PREGABALIN 50 MG CAP PO SCH (20:03)
[2016-02-10] MEDS: IPRATROPIUM/ALBUTEROL 3 ML DEYVIAL IH SCH ×5 (02:02→23:49)
[2016-02-10] MEDS: LEVOTHYROXINE 75 MCG TAB PO SCH (07:20)
[2016-02-10] MEDS: guaiFENesin 600 MG TAB.ER PO SCH ×2 (08:49→20:26)
[2016-02-10] MEDS: METOPROLOL TARTRATE 25 MG TAB PO SCH ×2 (08:49→20:26)
[2016-02-10] MEDS: DULoxetine 60 MG CAP PO SCH (08:49)
[2016-02-10] MEDS: LIDOCAINE 5% 1 EA PATCH TD SCH (09:25)
[2016-02-10] MEDS ORDERED: FUROSEMIDE 20 MG/2 ML VIAL IVP ONE (09:50)
--- NOTE | 2016-02-10 15:26 | HOSPPROG ---
Hospitalist Progress Note Assessment/Plan: 85-year-old female admitted with shortness of breath and history of frequent falls. She has a history of chronic AFib, chronic congestive heart failure, DVT, pulmonary embolus, and need for anticoagulation. She is a recent resident of [place] and per the palliative care consult has had a significant decline in the last 2 months. The family desires hospice care either at home or [place]. -chronic atrial fibrillation with need for rate control. Per Cardiology we will use only metoprolol for her rate control in light of her low blood pressure. Digoxin could be used but there is concern of toxicity regarding possible renal failure. Thus in light of the hospice care decision digoxin will not be used. -anticoagulation for chronic AFib and history of DVT and PE. Patient was on anticoagulation at the time of admission but because of frequent falls she will no longer be anticoagulated with Coumadin. Aspirin will be her only anticoagulation. -chronic congestive heart failure, decompensated diastolic CHF with acute exacerbation. The decompensation is probably due to the atrial fib with RVR. As the rate is coming further under control the CHF is clearing. Clinically the patient has significant rales in both bases and increased dullness. Will restart diuresis with Lasix. Note that her weight is up 6 kg since admission with significant peripheral edema. Echo on 01/24 showed an EF of 60% with diastolic dysfunction -hypoxemia, chronic respiratory failure, secondary to decompensated CHF. -DNR status -disposition today is unclear. The family feels that she needs to be watched due to the fall risk and despite the decision to use hospice care [place] once the patient watched on a 24/7 basis. The family cannot afford the 24/7 care. [facility] is currently refusing to accept her. Thus at this time we have no clear disposition. Consult with case management regarding her disposition. She is ready for discharge when a placement can be made. Subjective: No complaints. No report of chest pain nausea vomiting abdominal pain or diarrhea Objective: Vital Signs Temp Pulse Resp BP Pulse Ox 36.9 C 53 L 12 129/75 H 94 02/10/16 11:24 02/10/16 12:39 02/10/16 12:39 02/10/16 11:24 02/10/16 12:39 Laboratory Results 02/09/16 03:38 02/09/16 03:38 02/09/16 02/10/16 02/11/16 05:59 05:59 05:59 Intake Total 200 300 Output Total 400 200 Balance -200 300 -200 PT 20.5 SEC (12.0-15.0) H 02/06/16 13:50 INR 1.75 (0.83-1.16) H 02/06/16 13:50 - Time Spent With Patient Time Spent with Patient: greater than 35 minutes Time Spent with Patient: Greater than 35 minutes spent on this patients care, greater than 50% of time spent counseling, educating, and coordinating care regarding the above mentioned plan. - Physical Exam Constitutional: no apparent distress, chronically ill appearing Eyes: PERRL Ears, Nose, Mouth, Throat: moist mucous membranes, hard of hearing Cardiovascular: systolic murmur, irregularly irregular Respiratory: reduced air movement, inspiratory crackles, bronchial breath sounds , rhonchi Gastrointestinal: normoactive bowel sounds, soft, non-tender abdomen, no palpable masses Genitourinary: no bladder fullness Skin: warm Musculoskeletal: generalized weakness Psychiatric: poor insight, poor judgement, poor memory ICD10 Worksheet Patient Problems: Problems Problem Status Diagnosed Confusion Acute Palliative care encounter Acute Rapid atrial fibrillation Acute Fall Acute Head injury Acute Hypertension Acute Laceration of forehead Acute Pulmonary embolism Acute Syncope and collapse Acute Wedge compression fracture of T11 vertebra Acute
[2016-02-10] MEDS: PREGABALIN 50 MG CAP PO SCH (20:26)
[2016-02-11 04:07] LABS: % IMMATURE GRANULYOCYTES 0.3 % (0.0-1.1); ABSOLUTE IMMATURE GRANULOCYTES 0.02 10^3/uL (0.00-0.10); ADD DIFF? NO; ADD MORPH? NO; ADD SCAN? NO; ATYPICAL LYMPHOCYTE FLAG 80 (0-99); FRAGMENT RBC FLAG 0 (0-99); HEMATOCRIT 40.6 % (38.0-47.0); HEMOGLOBIN 13.5 g/dL (12.6-16.3); LEFT SHIFT FLG 0 (0-99); LIPEMIA HEMOLYSIS FLAG 80 (0-99); MEAN CELL HEMOGLOBIN 30.8 pg (27.9-34.1); MEAN CELL HEMOGLOBIN CONCENTR. 33.3 g/dL (32.4-36.7); MEAN CELL VOLUME 92.5 fL (81.5-99.8); MEAN PLATELET VOLUME 11.1 fL (8.7-11.7); PLATELET CLUMPS FLAG 0 (0-99); PLATELET COUNT 248 10^3/uL (150-400); RED BLOOD CELL COUNT 4.39 10^6/uL (4.18-5.33)
[2016-02-11 04:13] LABS: ANION GAP 10 mEq/L (8-16); CALCIUM 8.8 mg/dL (8.5-10.4); CARBON DIOXIDE 29 mEq/l (22-31); CHLORIDE 97 mEq/L (97-110); CREATININE 0.9 mg/dL (0.6-1.0); GLOMERULAR FILTRATION RATE 60; GLUCOSE 85 mg/dL (70-100); POTASSIUM 4.6 mEq/L (3.5-5.2); SODIUM 136 mEq/L (134-144)
[2016-02-11] MEDS: LEVOTHYROXINE 75 MCG TAB PO SCH (06:12)
[2016-02-11] MEDS: IPRATROPIUM/ALBUTEROL 3 ML DEYVIAL IH SCH ×3 (06:30→16:33)
[2016-02-11] MEDS: LIDOCAINE 5% 1 EA PATCH TD SCH (09:43)
[2016-02-11] MEDS: METOPROLOL TARTRATE 25 MG TAB PO SCH ×2 (09:43→20:02)
[2016-02-11] MEDS: DULoxetine 60 MG CAP PO SCH (09:43)
[2016-02-11] MEDS: guaiFENesin 600 MG TAB.ER PO SCH ×2 (09:43→20:02)
--- NOTE | 2016-02-11 14:34 | HOSPPROG ---
Hospitalist Progress Note Assessment/Plan: 85 yo F w h/o VTE and AF here w increasing falls at sunrise AF: agree w rate control only on metoprolol rate in low 100's- will not up titrate PE: 2 years ago falls noted agree w permanent dc of anticoag falls: per nursing, she is at high risk for falls she does require 24 hour care proph: rec LMWH while here dispo: awaiting placement Subjective: awaiting placement Objective: Vital Signs Temp Pulse Resp BP Pulse Ox 36.3 C 85 16 122/104 H 95 02/11/16 11:25 02/11/16 11:25 02/11/16 11:25 02/11/16 11:25 02/11/16 11:25 Laboratory Results 02/11/16 03:19 02/11/16 03:19 02/10/16 02/11/16 02/12/16 05:59 05:59 05:59 Intake Total 300 250 200 Output Total 800 Balance 300 -550 200 PT 20.5 SEC (12.0-15.0) H 02/06/16 13:50 INR 1.75 (0.83-1.16) H 02/06/16 13:50 - Physical Exam Constitutional: no apparent distress, appears nourished Eyes: PERRL, anicteric sclera, other (healing bruises L forehead) Ears, Nose, Mouth, Throat: moist mucous membranes, hearing normal Cardiovascular: regular rate and rhythym, no murmur, rub, or gallop Respiratory: no respiratory distress, no rales or rhonchi Gastrointestinal: normoactive bowel sounds, soft, non-tender abdomen Genitourinary: No marques in urethra Skin: warm, normal color Musculoskeletal: full muscle strength, no muscle tenderness Neurologic: AAOx3, sensation intact bilaterally Psychiatric: interacting appropriately, not anxious Lymph, Heme, Immunologic: no cervical LAD ICD10 Worksheet Patient Problems: Problems Problem Status Diagnosed Confusion Acute Palliative care encounter Acute Rapid atrial fibrillation Acute Fall Acute Head injury Acute Hypertension Acute Laceration of forehead Acute Pulmonary embolism Acute Syncope and collapse Acute Wedge compression fracture of T11 vertebra Acute
[2016-02-11] MEDS: PREGABALIN 50 MG CAP PO SCH (20:02)
[2016-02-12] MEDS: IPRATROPIUM/ALBUTEROL 3 ML DEYVIAL IH SCH ×3 (00:20→12:19)
[2016-02-12] MEDS: LEVOTHYROXINE 75 MCG TAB PO SCH (05:38)
[2016-02-12] MEDS: LIDOCAINE 5% 1 EA PATCH TD SCH (08:33)
[2016-02-12] MEDS: DULoxetine 60 MG CAP PO SCH (08:44)
[2016-02-12] MEDS: guaiFENesin 600 MG TAB.ER PO SCH (08:44)
[2016-02-12] MEDS: METOPROLOL TARTRATE 25 MG TAB PO SCH (08:44)
[2016-02-12 12:56] VITALS: BP 131/84; RESP 18; TEMP 97.6
--- NOTE | 2016-02-12 12:56 | PDIAF ---
- Diagnosis Diagnosis: falls, atrial fibrillation Code Status: Do Not Resuscitate - Medication Management Discharge Medications: Medications to Continue on Transfer Levothyroxine [Synthroid 75 mcg (*)] 75 mcg PO DAILY06 01/06/14 [Last Taken ] DULoxetine [Cymbalta 60 MG (*)] 60 mg PO DAILY 09/18/15 [Last Taken 02/06/16] Lidocaine 5% [Lidoderm 5% Patch (*)] 1 ea TD DAILY #0 patch 09/21/15 [Last Taken 02/06/16] Acetaminophen [Tylenol ES 500 mg (*)] 1,000 mg PO BID PRN 01/25/16 [Last Taken 02/06/16] Ipratropium/Albuterol [Duoneb (*)] 3 ml IH Q4 02/06/16 [Last Taken 02/06/16 12: 00] Metoprolol Tartrate [Lopressor 25 mg (*)] 25 mg PO BID 02/06/16 [Last Taken 09:00] Pregabalin [Lyrica 50mg (*)] 100 mg PO HS 02/06/16 [Last Taken 02/05/16] guaiFENesin [Mucinex 600 MG (*)] 600 mg PO BID 02/06/16 [Last Taken 02/06/16 09: 00] Discharge Medications: Refer to the Discharge Home Medication list for PRN reason. - Orders Services needed: Registered Nurse, Physical Therapy, Occupational Therapy Diet Recommendation: no restrictions on diet - Follow Up Care Current Providers and Referrals: Hilda Beyer MD [Primary Care Provider] - As per Instructions
--- NOTE | 2016-02-12 13:00 | HOSPPROG ---
Hospitalist Progress Note Assessment/Plan: 85 yo F w h/o VTE and AF here w increasing falls at sunrise AF: agree w rate control only on metoprolol rate in low 100's- will not up titrate PE: 2 years ago falls noted agree w permanent dc of anticoag falls: per nursing, she is at high risk for falls she does require 24 hour care proph: rec LMWH while here dispo: to SNF > 30 minutes Subjective: ready for dc Objective: Vital Signs Temp Pulse Resp BP Pulse Ox 36.7 C 100 17 124/89 H 95 02/12/16 08:00 02/12/16 08:00 02/12/16 08:00 02/12/16 08:00 02/12/16 08:00 Laboratory Results 02/11/16 03:19 02/11/16 03:19 02/11/16 02/12/16 02/13/16 05:59 05:59 05:59 Intake Total 250 600 Output Total 800 500 300 Balance -550 100 -300 PT 20.5 SEC (12.0-15.0) H 02/06/16 13:50 INR 1.75 (0.83-1.16) H 02/06/16 13:50 - Physical Exam Constitutional: no apparent distress, appears nourished Eyes: PERRL, anicteric sclera Ears, Nose, Mouth, Throat: moist mucous membranes, hearing normal Cardiovascular: regular rate and rhythym, no murmur, rub, or gallop Respiratory: no respiratory distress, no rales or rhonchi Gastrointestinal: normoactive bowel sounds, soft, non-tender abdomen Genitourinary: No marques in urethra Skin: warm, normal color Musculoskeletal: full muscle strength Neurologic: No AAOx3 Psychiatric: interacting appropriately ICD10 Worksheet Patient Problems: Problems Problem Status Diagnosed Confusion Acute Palliative care encounter Acute Rapid atrial fibrillation Acute Fall Acute Head injury Acute Hypertension Acute Laceration of forehead Acute Pulmonary embolism Acute Syncope and collapse Acute Wedge compression fracture of T11 vertebra Acute
--- NOTE | 2016-02-12 13:19 | GDS ---
[f rep st] DISCHARGE SUMMARY DISCHARGE DIAGNOSES: 1. Falls. 2. History of atrial fibrillation, previously on anticoagulation. 3. Pulmonary embolus 2 years ago with negative evaluation here. CONSULT DURING THIS ADMISSION: Cardiology. HOSPITAL COURSE: Please see admission history and physical by Dr. Maxi Youssef. The patient pres ented with falls, in rapid atrial fibrillation in the 150s. She was rate controlled with low-dose me toprolol. Given her history of falls, she had bruising all about her face. It was felt not appropri ate to continue anticoagulation. She had minimal oxygen requirement, was not felt consistent with a pulmonary embolism. Irrespective, the patient is not a candidate for anticoagulation. She is discha [facility] to [facility]. /[id number]/MODL
[2016-02-12 13:48] VITALS: PULSE 108; O2SAT 96
== END 2016-02-12 14:00 | DRG 308 ==
LOC: EDUNIT# → F2W 19:38
PROVIDERS: ADMIT Internal Medicine; ATTEND Internal Medicine
DX: I48.0 Paroxysmal atrial fibrillation (principal); I50.33 Acute on chronic diastolic (congestive) heart failure; J96.11 Chronic respiratory failure with hypoxia; R26.9 Unspecified abnormalities of gait and mobility; F03.90 Unspecified dementia, unspecified severity, without behavioral disturbance, psychotic disturbance, mood disturbance, and anxiety; R29.6 Repeated falls; N18.9 Chronic kidney disease, unspecified; M81.0 Age-related osteoporosis without current pathological fracture; Z66 Do not resuscitate; Z96.649 Presence of unspecified artificial hip joint; Z96.659 Presence of unspecified artificial knee joint; Z79.01 Long term (current) use of anticoagulants; Z86.711 Personal history of pulmonary embolism
CPT/HCPCS: 97001-GP; 97003-GO; 97110-GP; 97116-GP; 97530-GP; J1650